=== PATIENT | male | born 1990 | race Caucasian/White ===

== ENCOUNTER 2022-10-04 14:16 | Emergency (ER) | payer OTHER, SELFPAY ==
--- NOTE | ~2022-10-04 | US_ITS ---
EXAMINATION: US SCROTUM CLINICAL INFORMATION: Testicular pain.. COMPARISON: None available. TECHNIQUE: A sonogram of the scrotum was performed assessing recinos-scale appearance and color Doppler flow. Spectral Doppler analysis of the arterial and venous flow were performed in the testes bilaterally. FINDINGS: RIGHT: Right testicle measures 4.5 x 2.5 x 2.8 cm, volume 17 mL. No focal testicular parenchymal lesions are visualized. Spectral Doppler analysis of the arterial and venous flow is normal in the right testis. Right epididymal head is normal in size. 0.2 cm cyst in the right epididymis. No right hydrocele or varicocele is seen. Right epididymal Doppler flow is normal. LEFT: Left testicle measures 4.1 x 2.3 x 2.7 cm, volume 13 mL. No focal testicular parenchymal lesions are visualized. Spectral Doppler analysis of the arterial and venous flow is normal in the left testis. Left epididymal head is normal in size. No left hydrocele or varicocele is seen. Left epididymal Doppler flow is normal. US/US scrotum doppler IMPRESSION: Normal.
--- NOTE | ~2022-10-04 | US_ITS ---
EXAMINATION: US ABDOMEN LIMITED CLINICAL INFORMATION: Right upper quadrant pain, nausea. COMPARISON: None available. TECHNIQUE: Real-time imaging of the right upper quadrant abdominal viscera. FINDINGS: PANCREAS: Visualized portions unremarkable. LIVER: Mild diffuse increased echotexture without focal abnormality. GALLBLADDER: Mildly distended without focal abnormality. COMMON BILE DUCT: Normal in caliber measuring 0.2 cm in diameter. RIGHT KIDNEY: 11.8 cm. Unremarkable. FREE FLUID: None. US/US abdomen limited IMPRESSION: Mild diffuse increased hepatic echotexture is nonspecific in a patient of this age. Mild steatosis cannot be excluded. No acute abnormality.
[2022-10-04 14:22] VITALS: BP 137/77; PULSE 99; RESP 18; TEMP 36.3; O2SAT 98; BMI 36.3
--- NOTE | 2022-10-04 14:23 | ED.ABDPAIN ---
HPI - Abdominal Pain General Chief Complaint: General Medical <LANCE Prater - Last Filed: 10/04/22 14:26> Stated Complaint: Hernia <LANCE Prater - Last Filed: 10/04/22 14:26> Time Seen by Provider: 10/04/22 19:39 <LANCE Prater - Last Filed: 10/04/22 14:26> Source: patient <Ginny Bacon MD - Last Filed: 10/04/22 22:44> Mode of arrival: ambulatory <Ginny Bacon MD - Last Filed: 10/04/22 22:44> History of Present Illness HPI narrative: 32-year-old male arrives without significant past medical history with complaints of bilateral testicular pain for couple of weeks now and states that when he has a bowel movement or increases intra-abdominal pressure by lifting items a work that he feels significant pain at the inguinal area. Patient also reports right upper quadrant discomfort with associated nausea but denies any vomiting. Patient also reports that he has been feeling somewhat short of breath while at work. <Ginny Bacon MD - Last Filed: 10/04/22 22:44> Related Data Allergies/Adverse Reactions: Allergies Allergy/AdvReac Type Severity Reaction Status Date / Time No Known Allergies Allergy Verified 10/04/22 14:26 <LANCE Prater - Last Filed: 10/04/22 14:26> Review of Systems Review of Systems Pertinent positives and negatives as stated in HPI <Ginny Bacon MD - Last Filed: 10/04/22 22:44> PMFSH Past Medical History Source: nursing notes reviewed <Ginny Bacon MD - Last Filed: 10/04/22 22:44> Social History Social History: Social History Alcohol intake: current Alcohol intake frequency: holidays/special occasions only Smoked in Last 30 Days: No Use of substances other than those prescribed or required for medical reasons: No Advance Directives: No Advance Directives Information Provided: Yes <LANCE Prater - Last Filed: 10/04/22 14:26> Physical Exam ED Vital Signs: Vital Signs - 24 hr 10/04/22 14:22 10/04/22 19:42 Temperature 97.3 F 97.9 F Pulse Rate 99 87 Respiratory Rate 18 17 Blood Pressure 137/77 123/73 Pulse Oximetry 98 95 Oxygen Delivery Method Room Air Room Air BMI result Body Mass Index 36.3 <LANCE Prater - Last Filed: 10/04/22 14:26> Vital Signs - 24 hr 10/04/22 14:22 10/04/22 19:42 Temperature 97.3 F 97.9 F Pulse Rate 99 87 Respiratory Rate 18 17 Blood Pressure 137/77 123/73 Pulse Oximetry 98 95 Oxygen Delivery Method Room Air Room Air BMI result Body Mass Index 36.3 VITAL SIGNS: Reviewed. GENERAL: Well developed, well nourished, in no acute distress. HEAD: Normocephalic/atraumatic EYES: PERRLA, EOMI EARS: Ext canals without abnormality NOSE: Nares patent bilateral OROPHARYNX: no oral lesions noted, posterior pharynx clear NECK: Supple, no adenopathy LUNGS: Normal breath sounds. No adventitious sounds or accessory muscle use. SpO2<95> CARDIOVASCULAR: Regular rate and rhythm without noted murmurs ABDOMEN: Soft, right upper quadrant discomfort without rebound, non-distended with bowel sounds. : [Record Press Tender-Edwige]- no erythema or induration, mild tenderness on palpation of bilateral testicles, no nodules appreciated, no epididymal pain on palpation, no appreciated hernia is on either the right or left MUSCULOSKELETAL: No tenderness, deformities, or effusions noted on gross inspection. EXTREMITIES: No cyanosis, clubbing or edema. SKIN: Inspection of the skin reveals no rashes NEUROLOGIC: Alert and oriented x 4. Strength and sensation to light touch were grossly intact x 4. <Ginny Bacon MD - Last Filed: 10/04/22 22:44> Course Course Course Narrative: RME--32yo M w/no sig PMHx c/o worsening R side abdominal pain and testicular pain x1 week. States believes he has a hernia. Admits felt something when lifting. Denies constipation, N/V, dysuria/hematuria +RUQ & RLQ/suprapubic ttp noted, abd soft Labs, UA ordered <LANCE Prater - Last Filed: 10/04/22 14:26> Medical Decision Making Medical Decision Making MDM Narrative: 32-year-old male with history and clinical presentation unclear but given testicular discomfort with also complaints of shortness of breath will fully evaluate for any sort of scrotal/testicular pathology. I reviewed all investigations and there are no gross abnormalities at this time. Will pursue scrotal ultrasound as well as right upper quadrant ultrasound. I reviewed all investigations to include imaging and my interpretation is patient is experiencing nonspecific scrotal pain has there is no evidence of hernia, torsion, hydrocele or epididymitis. Patient appears well, and is otherwise discharged home with instructions to follow-up with his primary care provider. <Ginny Bacon MD - Last Filed: 10/04/22 22:44> Differential Diagnosis Please see the discussion above <Ginny Bacon MD - Last Filed: 10/04/22 22:44> Lab Data Please see the discussion above <Ginny Bacon MD - Last Filed: 10/04/22 22:44> Result Diagrams: 10/04/22 14:55 10/04/22 14:55 <LANCE Prater - Last Filed: 10/04/22 14:26> Labs: Lab Results 10/04/22 10/04/22 10/04/22 Range/Units 14:55 14:55 14:59 WBC 8.4 (4.8-10.8) X10*3/uL RBC 5.69 (4.60-5.80) X10*6/uL Hgb 15.4 (14.0-18.0) g/dl Hct 45.8 (42.0-52.0) % MCV 80.5 (80.0-98.0) fL MCH 27.1 (27.0-33.0) pg MCHC 33.6 (31.0-36.0) g/dl RDW 12.2 (11.0-16.0) % Plt Count 202 (160-400) X10*3/uL MPV 10.0 (9.4-12.4) fL Immature Gran % (Auto) 0.2 (0.0-0.4) % Neut % (Auto) 68.3 (45-73) % Lymph % (Auto) 21.3 (20-40) % Wilbarger % (Auto) 7.0 (2-11) % Eos % (Auto) 2.7 (0-4) % Baso % (Auto) 0.5 (0-2) % Lymph # (Auto) 1.8 (1.2-4.9) X10*3/uL Wilbarger # (Auto) 0.6 (0.1-1.2) X10*3/uL Eos # (Auto) 0.2 (0.0-0.4) X10*3/uL Baso # (Auto) 0.0 (0.0-0.2) X10*3/uL Abs Immat Gran (auto) 0.02 (0.00-0.03) X10*3/uL Absolute Neuts (auto) 5.7 (2.0-8.3) x10*3/uL Absolute Nucleated RBC 0.000 (0.0-0.012) X10*3/uL Nucleated RBC % (auto) 0.0 (0.0-0.2) /100WBC Sodium 142 (135-145) mmol/L Potassium 4.1 (3.3-5.1) mmol/L Chloride 105 (96-108) mmol/L Carbon Dioxide 30 H (22-29) mmol/L Anion Gap 11 L (12-20) BUN 13 (9-16) mg/dL Creatinine 1.26 (0.5-1.4) mg/dL Estim Creat Clear Calc 118.6 Estimated GFR > 60 Random Glucose 119 H (60-115) mg/dL Calcium 9.0 (8.4-10.2) mg/dL Total Bilirubin 0.4 (0.0-1.0) mg/dL Direct Bilirubin 0.1 (0.0-0.5) mg/dL AST 21 (5-37) U/L ALT 41 H (0-40) U/L Alkaline Phosphatase 58 (39-117) U/L Total Protein 6.8 (6.5-8.0) g/dL Albumin 4.1 (3.5-5.0) g/dL Lipase 43 (8-78) U/L Urine Color Yellow Urine Appearance Clear Urine pH 6.5 (5.0-9.0) Ur Specific Gifford 1.025 (1.005-1.025) Urine Protein Negative (Neg-Trace) mg/dL Urine Glucose (UA) Negative (Negative) mg/dL Urine Ketones Negative (Negative) mg/dL Urine Blood Negative (Negative) Urine Nitrite Negative (Negative) Ur Leukocyte Esterase Negative (Negative) <LANCE Prater - Last Filed: 10/04/22 14:26> Lab Results 10/04/22 10/04/22 10/04/22 Range/Units 14:55 14:55 14:59 WBC 8.4 (4.8-10.8) X10*3/uL RBC 5.69 (4.60-5.80) X10*6/uL Hgb 15.4 (14.0-18.0) g/dl Hct 45.8 (42.0-52.0) % MCV 80.5 (80.0-98.0) fL MCH 27.1 (27.0-33.0) pg MCHC 33.6 (31.0-36.0) g/dl RDW 12.2 (11.0-16.0) % Plt Count 202 (160-400) X10*3/uL MPV 10.0 (9.4-12.4) fL Immature Gran % (Auto) 0.2 (0.0-0.4) % Neut % (Auto) 68.3 (45-73) % Lymph % (Auto) 21.3 (20-40) % Wilbarger % (Auto) 7.0 (2-11) % Eos % (Auto) 2.7 (0-4) % Baso % (Auto) 0.5 (0-2) % Lymph # (Auto) 1.8 (1.2-4.9) X10*3/uL [place]ger # (Auto) 0.6 (0.1-1.2) X10*3/uL Eos # (Auto) 0.2 (0.0-0.4) X10*3/uL Baso # (Auto) 0.0 (0.0-0.2) X10*3/uL Abs Immat Gran (auto) 0.02 (0.00-0.03) X10*3/uL Absolute Neuts (auto) 5.7 (2.0-8.3) x10*3/uL Absolute Nucleated RBC 0.000 (0.0-0.012) X10*3/uL Nucleated RBC % (auto) 0.0 (0.0-0.2) /100WBC Sodium 142 (135-145) mmol/L Potassium 4.1 (3.3-5.1) mmol/L Chloride 105 (96-108) mmol/L Carbon Dioxide 30 H (22-29) mmol/L Anion Gap 11 L (12-20) BUN 13 (9-16) mg/dL Creatinine 1.26 (0.5-1.4) mg/dL Estim Creat Clear Calc 118.6 Estimated GFR > 60 Random Glucose 119 H (60-115) mg/dL Calcium 9.0 (8.4-10.2) mg/dL Total Bilirubin 0.4 (0.0-1.0) mg/dL Direct Bilirubin 0.1 (0.0-0.5) mg/dL AST 21 (5-37) U/L ALT 41 H (0-40) U/L Alkaline Phosphatase 58 (39-117) U/L Total Protein 6.8 (6.5-8.0) g/dL Albumin 4.1 (3.5-5.0) g/dL Lipase 43 (8-78) U/L Urine Color Yellow Urine Appearance Clear Urine pH 6.5 (5.0-9.0) Ur Specific Gifford 1.025 (1.005-1.025) Urine Protein Negative (Neg-Trace) mg/dL Urine Glucose (UA) Negative (Negative) mg/dL Urine Ketones Negative (Negative) mg/dL Urine Blood Negative (Negative) Urine Nitrite Negative (Negative) Ur Leukocyte Esterase Negative (Negative) <Ginny Bacon MD - Last Filed: 10/04/22 22:44> Radiology Impression Radiologist Impression: My interpretation is in agreement with radiology's impression of the imaging study. <Ginny Bacon MD - Last Filed: 10/04/22 22:44> Discharge Plan Discharge Clinical Impression: Scrotal pain, Abdominal discomfort <LANCE Prater - Last Filed: 10/04/22 14:26> Patient Disposition: Home, Self-Care <LANCE Prater - Last Filed: 10/04/22 14:26> Instructions: Abdominal Pain (ED), Scrotal Pain (ED), Testicle Pain (ED) <LANCE Prater - Last Filed: 10/04/22 14:26> Additional Instructions: 1. Please follow-up with your primary care provider by calling the office in the morning and discussing further outpatient management. 2. Recommend trying the use briefs instead of boxer's evaluate for some approvement in the discomfort that you are experiencing. Return to the ER for any worsening symptoms. <LANCE Prater - Last Filed: 10/04/22 14:26>
[2022-10-04 14:59] LABS: MANUAL DIFF FLAG NO
[2022-10-04 15:02] LABS: Basophils Percent Auto 0.5 % (0-2); Eosinophils Absolute Auto 0.2 X10*3/uL (0.0-0.4); Eosinophils Percent Auto 2.7 % (0-4); Hematocrit 45.8 % (42.0-52.0); Hemoglobin 15.4 g/dl (14.0-18.0); Imm Gran Abs Auto 0.02 X10*3/uL (0.00-0.03); Imm Gran Pct Auto 0.2 % (0.0-0.4); Lymphocytes Absolute Auto 1.8 X10*3/uL (1.2-4.9); Lymphocytes Percent Auto 21.3 % (20-40); Mean Corpuscular HGB Conc 33.6 g/dl (31.0-36.0); Mean Corpuscular Hemoglobin 27.1 pg (27.0-33.0); Mean Corpuscular Volume 80.5 fL (80.0-98.0); Monocytes Absolute Auto 0.6 X10*3/uL (0.1-1.2); Neutrophils Absolute Auto 5.7 x10*3/uL (2.0-8.3); Neutrophils Percent Auto 68.3 % (45-73); Platelet Count 202 X10*3/uL (160-400); Red Blood Count 5.69 X10*6/uL (4.60-5.80); Red Cell Distribution Width 12.2 % (11.0-16.0); White Blood Count 8.4 X10*3/uL (4.8-10.8)
[2022-10-04 15:17] LABS: Appearance Urine Clear; Color Urine Yellow; Glucose Urine UA Negative (Negative); Leukocyte Esterase Urine Negative (Negative); Nitrite Urine Negative (Negative); PH 6.5 (5.0-9.0); Specific Gravity - Urine 1.025 (1.005-1.025); Urine Blood Negative (Negative); Urine Ketones Negative (Negative); Urine Protein Negative (Neg-Trace)
[2022-10-04 15:26] LABS: Alanine Aminotransferase 41 U/L (0-40); Albumin Level 4.1 g/dL (3.5-5.0); Alkaline Phosphatase 58 U/L (39-117); Anion Gap 11 (12-20); Aspartate Amino Transferase 21 U/L (5-37); Bilirubin Direct 0.1 mg/dL (0.0-0.5); Bilirubin Total 0.4 mg/dL (0.0-1.0); Blood Urea Nitrogen 13 mg/dL (9-16); Carbon Dioxide 30 mmol/L (22-29); Chloride 105 mmol/L (96-108); Creatinine Clr Calc Pharmacy 118.6; Estimated Glomerular Filt Rate > 60; Glucose Random 119 mg/dL (60-115); Lipase 43 U/L (8-78); Potassium 4.1 mmol/L (3.3-5.1); Sodium 142 mmol/L (135-145); Total Protein 6.8 g/dL (6.5-8.0)
[2022-10-04 19:42] VITALS: BP 123/73; PULSE 87; RESP 17; TEMP 36.6; O2SAT 95
== END 2022-10-04 22:49 | disposition home or self-care (01) ==
PROVIDERS: Physician Assistant; Emergency Provider Student in an Organized Health Care Education/Training Program
DX: N50.82 Scrotal pain (principal); R10.9 Unspecified abdominal pain; R60.0 Localized edema; N50.812 Left testicular pain; N50.811 Right testicular pain; Z79.899 Other long term (current) drug therapy
CPT/HCPCS: 36415; 76705; 76870; 80048; 80076; 81003; 83690; 85025; 93975; 99284